=== PATIENT | male | born 1975 | race Caucasian/White ===

== ENCOUNTER 2016-06-01 16:28 | Emergency (ER) | payer OTHER ==
[2016-06-01] MEDS ORDERED: ACETAMINOPHEN 325 MG TABLET PO STA (17:02)
[2016-06-01] MEDS ORDERED: ACETAMINOPHEN 325 MG TABLET PO ONE (17:07)
[2016-06-01] MEDS ORDERED: HYDROmorphone 1 MG/ML SYRINGE IVP STA (17:14)
[2016-06-01] MEDS ORDERED: SODIUM CHLORIDE 0.9% 1,000 ML IV ONE (17:14)
[2016-06-01] MEDS ORDERED: HYDROmorphone 1 MG/ML SYRINGE ONE (17:28)
[2016-06-01] MEDS ORDERED: metroNIDAZOLE 250 MG TABLET PO STA (19:00)
[2016-06-01] MEDS ORDERED: CIPROFLOXACIN 250 MG TABLET PO STA (19:00)
[2016-06-01] MEDS ORDERED: CIPROFLOXACIN 250 MG TABLET PO ONE (19:07)
[2016-06-01] MEDS ORDERED: metroNIDAZOLE 250 MG TABLET PO ONE (19:24)
== END 2016-06-01 19:30 | disposition home or self-care (01) ==
DX: K57.32 Diverticulitis of large intestine without perforation or abscess without bleeding (principal); I10 Essential (primary) hypertension; E03.9 Hypothyroidism, unspecified
CPT/HCPCS: 36415; 74176; 80053; 81003; 83690; 85025; 96374; 99283; 99284; A9270; J1170

== ENCOUNTER 2016-06-03 18:00 | Inpatient (IN) | payer OTHER ==
[2016-06-03] MEDS ORDERED: SODIUM CHLORIDE 0.9% 1,000 ML IV ONE ×2 (18:05→18:10)
[2016-06-03] MEDS ORDERED: HYDROmorphone 1 MG/ML SYRINGE IVP STA ×2 (18:05→19:54)
[2016-06-03] MEDS ORDERED: HYDROmorphone 1 MG/ML SYRINGE ONE ×2 (18:10→19:57)
[2016-06-03] MEDS ORDERED: ONDANSETRON 4 MG/2 ML VIAL ONE (18:23)
[2016-06-03] MEDS ORDERED: ONDANSETRON 4 MG/2 ML VIAL IVP STA (18:34)
[2016-06-03] MEDS ORDERED: metroNIDAZOLE 500 MG/100 ML 100 ML IV ONE (19:02)
[2016-06-03] MEDS ORDERED: cefTRIAXone 1 GM in SODIUM CHLORIDE 0.9% MINIBAG 100 ML IV STA (19:02)
[2016-06-03] MEDS ORDERED: cefTRIAXone 1 GM VIAL ONE (19:06)
[2016-06-03] MEDS ORDERED: metroNIDAZOLE 500 MG/100 ML 100 ML ONE (19:57)
[2016-06-03] MEDS ORDERED: MORPHINE 2 MG/ML SYRINGE IVP STA (20:04)
[2016-06-03] MEDS ORDERED: MORPHINE 2 MG/ML SYRINGE ONE (20:06)
[2016-06-03] MEDS ORDERED: ONDANSETRON ODT 4 MG TABLET TL PRN (20:12)
[2016-06-03] MEDS ORDERED: SODIUM CHLORIDE FLUSH 0.9% 10 ML SYRINGE IVP PRN (20:12)
[2016-06-03] MEDS: SODIUM CHLORIDE 0.9% 1,000 ML IV SCH (22:08)
[2016-06-03] MEDS: MORPHINE 2 MG/ML SYRINGE IVP PRN (22:10)
[2016-06-03] MEDS: SODIUM CHLORIDE FLUSH 0.9% 10 ML SYRINGE IVP SCH (22:11)
[2016-06-04] MEDS: MORPHINE 2 MG/ML SYRINGE IVP PRN ×3 (02:18→16:16)
[2016-06-04] MEDS: ONDANSETRON 4 MG/2 ML VIAL IVP PRN ×3 (02:18→16:17)
[2016-06-04] MEDS: SODIUM CHLORIDE FLUSH 0.9% 10 ML SYRINGE IVP SCH ×2 (05:44→11:56)
[2016-06-04] MEDS ORDERED: POLYETHYLENE GLYCOL 3350 17 GM PACKET PO SCH (09:00)
[2016-06-04] MEDS ORDERED: LISINOPRIL 20 MG TABLET PO SCH (09:00)
[2016-06-04] MEDS ORDERED: ENOXAPARIN 40 MG/0.4 ML SYRINGE SUBQ SCH (09:00)
[2016-06-04] MEDS ORDERED: THYROID 60 MG TABLET PO SCH (09:00)
[2016-06-04] MEDS: THYROID 60 MG TABLET PO SCH ×2 (09:32→14:21)
[2016-06-04] MEDS: SODIUM CHLORIDE 0.9% 1,000 ML IV SCH (10:27)
[2016-06-04] MEDS ORDERED: cefTRIAXone 2 GM in SODIUM CHLORIDE 0.9% MINIBAG 100 ML IV SCH (17:00)
[2016-06-04] MEDS ORDERED: metroNIDAZOLE 500 MG/100 ML 50 ML IV SCH (18:00)
== END 2016-06-04 18:50 | disposition home or self-care (01) | DRG 392 ==
DX: K57.32 Diverticulitis of large intestine without perforation or abscess without bleeding (principal); M75.101 Unspecified rotator cuff tear or rupture of right shoulder, not specified as traumatic; I10 Essential (primary) hypertension; E78.5 Hyperlipidemia, unspecified; E89.0 Postprocedural hypothyroidism; Z79.899 Other long term (current) drug therapy; Z87.891 Personal history of nicotine dependence; E66.9 Obesity, unspecified; Z68.38 Body mass index [BMI] 38.0-38.9, adult; L82.1 Other seborrheic keratosis; Z85.850 Personal history of malignant neoplasm of thyroid

== ENCOUNTER 2016-08-04 08:00 | Emergency (ER) | payer OTHER ==
[2016-08-04] MEDS ORDERED: HYDROmorphone 1 MG/ML SYRINGE IVP STA (08:39)
[2016-08-04] MEDS ORDERED: KETOROLAC 60 MG/2 ML VIAL IVP STA (08:39)
[2016-08-04] MEDS ORDERED: SODIUM CHLORIDE 0.9% 1,000 ML IV ONE (08:39)
[2016-08-04] MEDS ORDERED: cefTRIAXone 1 GM in SODIUM CHLORIDE 0.9% MINIBAG 100 ML IV STA (08:40)
[2016-08-04] MEDS ORDERED: metroNIDAZOLE 500 MG/100 ML 100 ML IV ONE (08:40)
[2016-08-04] MEDS ORDERED: KETOROLAC 30 MG/ML VIAL ONE (08:42)
[2016-08-04] MEDS ORDERED: HYDROmorphone 1 MG/ML SYRINGE ONE (08:43)
[2016-08-04] MEDS ORDERED: cefTRIAXone 1 GM VIAL ONE (08:43)
[2016-08-04] MEDS ORDERED: metroNIDAZOLE 500 MG/100 ML 100 ML ONE (09:35)
[2016-08-04] MEDS ORDERED: fentaNYL 100 MCG/2 ML VIAL ONE (10:40)
[2016-08-04] MEDS ORDERED: fentaNYL 100 MCG/2 ML VIAL IVP STA (10:50)
== END 2016-08-04 11:04 | disposition home or self-care (01) ==
DX: K57.32 Diverticulitis of large intestine without perforation or abscess without bleeding (principal); I10 Essential (primary) hypertension; E03.9 Hypothyroidism, unspecified
CPT/HCPCS: 36415; 74176; 80053; 81003; 83690; 85025; 96365; 96375; 99283; 99284; J1170

== ENCOUNTER 2016-11-07 13:35 | Outpatient (CLI) | payer OTHER | END 2016-11-07 13:36 | disposition home or self-care (01) | LOC: SC 13:35 | PROVIDERS: ATTEND Nurse Practitioner Family | DX: G47.33 Obstructive sleep apnea (adult) (pediatric) (principal) | CPT/HCPCS: 99212; 99214 ==